=== PATIENT | male | born 1955 | race Caucasian/White ===

== ENCOUNTER 2021-04-21 05:01 | Inpatient (IN) | payer BC ==
[~2021-04-21] VITALS: Ht 188 cm; Wt 64.9 kg
[2021-04-21] VITALS (8 sets, daily range): BP systolic 96–144; BP diastolic 60–91
--- NOTE | ~2021-04-21 | EMS ---
[address] [address] EMS Patient Care Report Name: KJ ANTUNEZ Room #: 446-P ADM IN M.R.#: [id number] Admission: 04/21/21 Attend Phys: Shekhar Oconnell MD Discharge: Date of : 51 Report #: [id number] THIS REPORT FOR: //name// Report Transmitted: 04/25/2021 15:12 EMS Care Summary [place], [place]/[facility] Incident [id number] @ 04/21/2021 04:12 Incident Location [address] [place], [place] [id number] Patient KJ ANTUNEZ Male, 65 Years 1955 Patient Address HOMELESS Patient History None Reported, Patient Allergies No known allergies, Patient Medications None Reported, Chief Complaint COLD EXPOSURE Disposition Transported No Lights/[place] Dispatch Reason Hemorrhage/Laceration Transported To [facility] Narrative EMS DISPATCHED TO RESIDENCE ON A REPORT OF AN UNCONSCIOUS PERSON. UPON ARRIVAL ON SCENE EMS FIND PT SITTING WITH HIS FEET STUCK IN A WINDOW WELL. PT DENIED ANY PAIN, NO OBVIOUS INJURIES NOTED BY EMS. PT LIFTED OUT OF WINDOW WELL AND ONTO GROUND SURFACE. PT UNABLE TO AMBULATE WITHOUT ASSISTANCE. PT STATED TO EMS THAT HE HAD BEEN STUCK OUTSIDE IN THE COLD ENVIRONMENT FOR A PROLONGED PERIOD, [address] [address] EMS Patient Care Report Name: KJ ANTUNEZ Room #: 446-P ADM IN [facility].#: [id number] Admission: 04/21/21 Attend Phys: Shekhar Oconnell MD Discharge: Date of : 51 Report #: [id number] AND HAD LACK OF SENSATION IN LOWER EXTREMITIES. PT MOVED ONTO EMS STRETCHER AND INTO AMBULANCE WHERE PT VITAL SIGNS OBTAINED. PASSSIVE REWARMING MEASURE TAKEN BY EMS AND PT CONDITION CONTINUALLY MONITORED EN ROUTE TO [facility]. NO NOTICEABLE CHANGES IN PT CONDITION DURING TRANSPORT TO RECEIVING FACILITY. UPON ARRIVAL TO [facility] PT MOVED INTO FACILITY ON EMS STRETCHER WHERE PT WAS THEN TRANSFERRED ONTO ER HOSPITAL BED WITHOUT INCIDENT. PT REPORT GIVEN TO RECEIVING NURSING STAFF AND TRANSFER OF PT CARE COMPLETED. Initial Vitals @04:47P: 71,R: 16,BP: 176/67,Pain: 0/10,GCS: 15,SpO2: 95,Revised Trauma: 12, @04:42P: 79,R: 16,BP: 153/87,Pain: 0/10,GCS: 15,SpO2: 95,Revised Trauma: 12, Assessments @04:54MENTAL:Time Oriented,Place Oriented,Event Oriented,Person Oriented,SKIN:Pale,Cold,HEENT:Eyes: No Abnormalities,Neck/Airway: No Abnormalities,LUNG SOUNDS:ABDOMEN:PELVIS//GI:EXTREMITIES:Right Leg: Abnormal Sensation,Left Leg: Abnormal Sensation,Left Arm: No Abnormalities,Right Arm: No Abnormalities,PULSE:NEURO:Abnormal Gait, Impression Hypothermia Procedures @04:35 ALS Assessment Response: UnchangedSucceeded @04:39 Warming Response: UnchangedSucceeded Timeline 04:10,Call Received 04:10,Dispatch Notified 04:12,Dispatched 04:15,En Route 04:32,On Scene 04:34,At Patient 04:35,ALS Assessment,Response: UnchangedSucceeded, 04:39,Warming,Response: UnchangedSucceeded, 04:42,BP: 153/87 M,PULSE: 79,RR: 16 R,SPO2: 95 Ox,ETCO2: ,BG: ,PAIN: 0,GCS: 15, 04:46,Depart Scene 04:47,BP: 176/67 M,PULSE: 71,RR: 16 R,SPO2: 95 Ox,ETCO2: ,BG: ,PAIN: 0,GCS: 15, 04:57,At Destination 05:09,Call Closed Disclaimer v1.1 Copyright 2020 [employer] This EMS Care Summary contains data elements from the applicable legal record (which may be displayed differently). It is [place] [address] EMS Patient Care Report Name: KJ ANTUNEZ Room #: 446-P ADM IN .R.#: [id number] Admission: 04/21/21 Attend Phys: Shekhar Oconnell MD Discharge: Date of : 51 Report #: [id number] information for the following purposes: continuity of care, clinical quality, and state data reporting. The complete legal record is available to ED staff and administrators of the receiving hospital in [employer] Patient Tracker. All data is provided "as is."
[2021-04-21 06:19] LABS: ANION GAP 12 mmol/L (7-16); BUN 34 mg/dL (7-18); CALCIUM 8.4 mg/dL (8.5-10.1); CHLORIDE 107 mmol/L (98-107); CO2 26 mmol/L (21-32); CREATININE 1.1 mg/dL (0.7-1.3); GLUCOSE 217 mg/dL (74-106); POTASSIUM 5.6 mmol/L (3.5-5.1); SODIUM 145 mmol/L (136-145)
[2021-04-21 06:22] LABS: HEMOGLOBIN 8.9 gm/dL (14.0-18.0); MCH 25.5 pg (26.0-34.0); MCHC 27.2 g/dL (28.0-37.0); MCV 93.8 fL (80.0-100.0)
[2021-04-21 06:23] LABS: ALBUMIN 3.9 g/dL (3.4-5.0); MAGNESIUM 2.5 mg/dL (1.8-2.4); PHOSPHORUS 3.5 mg/dL (2.6-4.7); SGOT 41 U/L (15-37); SGPT 20 U/L (16-63); TOTAL BILIRUBIN 0.3 mg/dL (0.2-1.0); TOTAL PROTEIN 6.9 g/dL (6.4-8.2)
[2021-04-21 06:24] LABS: SALICYLATE < 2.8 mg/dL (2.8-20.0)
[2021-04-21 06:25] LABS: HEMATOCRIT 32.8 % (42.0-52.0); RBC 3.5 mil/uL (4.50-6.00); RDW 17.9 % (10.5-14.5)
[2021-04-21 06:37] LABS: WBC 333.8 thou/uL (4.0-11.0)
[2021-04-21 06:59] LABS: URINE BILIRUBIN NEGATIVE (Negative); URINE BLOOD 3+ (Negative); URINE CLARITY CLEAR; URINE COLOR YELLOW; URINE GLUCOSE-RANDOM* 1+ (Negative); URINE KETONES NEGATIVE (Negative); URINE LEUKOCYTES-REFLEX NEGATIVE (Negative); URINE NITRITE-REFLEX NEGATIVE (Negative); URINE PROTEIN (DIPSTICK) 1+ (Negative); URINE SPECIFIC GRAVITY >= 1.030 (1.005-1.035); URINE UROBILINOGEN 0.2 E.U./dl (0.2-1.0)
[2021-04-21 07:08] LABS: HYALINE CASTS 0-3 Few /LPF (None Seen); MUCUS >6 Heavy strn/LPF (None Seen); SQUAMOUS 4-10 Moderate /LPF (0-3)
[2021-04-21 07:10] LABS: URINE RBC 1-2 Rare /HPF (NONE SEEN); URINE WBC-REFLEX 0-5 Rare /HPF (0-5)
[2021-04-21 07:11] LABS: AMORPHOUS URATES Few /LPF (None Seen)
[2021-04-21 07:13] LABS: AMP/METHAMP Negative (Negative); BARBITURATES Negative (Negative); BENZODIAZEPINES Negative (Negative); COCAINE Negative (Negative); METHADONE Negative (Negative); OPIATES Negative (Negative); PCP Negative (Negative)
--- NOTE | 2021-04-21 10:14 | EKG ---
[address] [address] ELECTROCARDIOGRAM REPORT Name: KJ ANTUNEZ Room #: 201-P ADM IN M.R.#: [id number] Admission: 04/21/21 Attend Phys: Shekhar Oconnell MD Discharge: Date of : 51 Report #: [id number] [facility] ED Test Date: 2021-04-21 Test Time: 06:53:04 Pat Name: KJ ANTUNEZ Department: Room: 201 Gender: M Maintenance Chief: jr : 1955 Requested By: Gulshan Donald Order Number: [id number] MD: Sagar Kruger Measurements Intervals [place] Rate: 98 P: AL: QRS: 1 QRSD: 136 T: 32 QT: 427 QTc: 546 Interpretive Statements Atrial fibrillation Nonspecific ST segment abnormalities No previous ECG available for comparison Electronically Signed On 04-21-2021 10:14:27 [employer] by Sagar Kruger [email or web address] <ELECTRONICALLY SIGNED> By: Sagar Kruger MD 04/21/21 [id number] Sagar Kruger MD /EPI
[2021-04-21 11:14] LABS: HEMOGLOBIN 7.7 gm/dL (14.0-18.0); MCH 28.6 pg (26.0-34.0); MCV 92.4 fL (80.0-100.0); RDW 17.4 % (10.5-14.5)
[2021-04-21 11:21] LABS: WBC 223.1 thou/uL (4.0-11.0)
--- NOTE | 2021-04-21 13:24 | NUR ---
PT ARRIVED VIA GURNEY FROM ER. PT IS ALERT TO SELF AND WHERE HE IS AT. pT STATED THAT IT WAS 2021 BUT DID NOT KNOW ANY OTHER INFORMATION OR WHY HE WAS HERE. PT IS SR ON THE MONITOR AND RA. PT HAS 3 ABRASIONS ON HIS BACK, SEVERAL SCRATCHES AND BUG BITES ON HIS ARMS AND LEGS, AND ABRASION TO RIGHT SIDE OF FACE. PT WAS COVERED IN DIRT. COCCYX RED. RECEIVED CRITICAL WBC. NOTIFIED DR. MOROCHO. NO ORDERS AT THAT TIME. PER DR. MOROCHO, DRAW NEXT LACTIC ACID AT 1600. PT HAD NO COMPLAINTS OF PAIN OR DISCOMFORT. ORIENTED PT TO ROOM AND WENT THROUGH ADMISSION PACKET WITH PT. PT VERBALIZED UNDERSTANDING. WILL CONTINUE TO MONITOR.
[2021-04-21 15:20] LABS: ABSOLUTE NEUTROPHILS 13.4 thou/uL (1.4-8.2); BLASTS 1 %
[2021-04-21 15:22] LABS: ATYPICAL LYMPHS 12 %
[2021-04-21 15:23] LABS: PLATELET COUNT 82 thou/uL (150-400)
[2021-04-21 15:28] LABS: ANISOCYTOSIS 2+
--- NOTE | 2021-04-21 18:10 | NUR ---
SPOKE WITH DR. MOROCHO REGARDING LACTIC ACID 2.7. PER DR. MOROCHO, REPEAT LACTIC ACID WITH AM LABS. AT THIS TIME, NO NEED TO CONTINUE FLUIDS PER DR. MOROCHO DUE TO PT EATING AND DRINKING FLUIDS. WILL CONTINUE TO MONITOR.
--- NOTE | 2021-04-21 23:13 | NUR ---
ASSESSMENT COMPLTED. PT IS SO WEAK APPEARING. VERY PLEASANT. GOT UP X 2 TO UE THE BSC-REQUIRES CLOSE ASSIST SINCE HE IS VERY WEAK. HE HAD A BM. SHAYNA HAS DARK CLOUDY URINE.DRANK SOME SODAS. SR ON TELEMETRY. HE IS ROOM AIR-NO SIGNS OF DISTRESS.EDEMA TO BLE-SCDS IN PLACE. TEMP AND BP WNL.BEAR HUGGER ON LOW SETTINGS AND PT REPORTS FEELING COMFORTABLE.FALL PREC IN PLACE. WILL CONTINUE WITH POC TILL EOS.
[2021-04-22 03:33] LABS: HEMATOCRIT 22.4 % (42.0-52.0); HEMOGLOBIN 6.9 gm/dL (14.0-18.0)
[2021-04-22 03:35] LABS: MCH 28.6 pg (26.0-34.0); MCHC 30.7 g/dL (28.0-37.0); RBC 2.4 mil/uL (4.50-6.00); RDW 17.7 % (10.5-14.5)
[2021-04-22 03:38] LABS: WBC 171.4 thou/uL (4.0-11.0)
[2021-04-22 04:35] VITALS: BP 149/85
[2021-04-22 07:00] VITALS: BP 132/81
--- NOTE | 2021-04-22 10:42 | NUR ---
Nutrition: Pt admitted with hypothermia. Consult received for "severe sepsis." Pt found down and hypothermic at home. Has no heating for house. Pt feels better now. On warming blankets. Wts are highly variable: admit wt 125#, bed wt 143#. PLEASE REWEIGH FOR ACCURACY. Pt is eating 100% of meals. Per chart review, there is "no sepsis suspected." Labs: albumin 3.9, BG 141-217, K+ 5.6, BUN 3.4, creatinine 1.1. Bilateral feet edema. No other nutrition needs at this time. RD to follow up on accurate wt. Mild risk at this time.
[2021-04-22 11:00] VITALS: BP 124/75
--- NOTE | 2021-04-22 11:41 | NUR ---
PT CARE ASSUMED THIS AM, ALERT AND ORIENTED X4, FORGETFUL AND IMPULSIVE. BODY TEMP WITHIN NORMAL NOW. ON ROOM AIR, NO SIGNS OF DISTRESS. PT BILATERAL LOWER EXTREMITIES, SWOLLEN AND PAINFUL. DR. MOROCHO MADE AWARE. LEGS ELEVATED. CORRAL IN PLACE. DNEIES ANY NEEDS, WILL CONTINUE TO MONITOR. FALL PRECAUTIONS IN PLACE. WILL CONTINUE TOP MONITOR.
[2021-04-22 15:30] VITALS: BP 151/81
[2021-04-22 16:02] LABS: URIC ACID* 2.9 mg/dL (3.5-7.2)
[2021-04-22 19:32] VITALS: BP 137/79
[2021-04-22 20:00] VITALS: BP 137/79
[2021-04-23 03:18] LABS: HEMOGLOBIN 6.7 gm/dL (14.0-18.0)
[2021-04-23 03:23] LABS: HEMATOCRIT 21.4 % (42.0-52.0); MCH 29.2 pg (26.0-34.0); MCHC 31.3 g/dL (28.0-37.0); MCV 93.4 fL (80.0-100.0); RBC 2.29 mil/uL (4.50-6.00); RDW 17.4 % (10.5-14.5)
[2021-04-23 03:26] VITALS: BP 138/85
[2021-04-23 07:07] VITALS: BP 142/86
--- NOTE | 2021-04-23 07:38 | NUR ---
Assumed care at 1900 on 04/22/21. Pt A&O X 4. afebrile. no c/o pain. critical WBC of 158 called at 0427, CONVERSION MAN notitified. Assessments as charted.
--- NOTE | 2021-04-23 09:28 | NUR ---
PT TAKEN TO CT SCAN OF ABD THIS AM VIA WHEELCHAIR. PT ABLE TO STAND PIVOT AND SIT IN CHAIR AND TRANSPORT EASILY TO AND FROM CT. PT IN NEED OF BLOOS TRANSFUSION HOWEVER HE DENIES WANTING TO RECEIEVE TRANSFUSION AT THIS TIME. DR. MOROCHO AWARE AND HAS SPOKEN TO PATIENT REGARDING RISKS/BENEFITS, PT SIGNED REFUSAL CONSENT FORM. IS INFORMED THAT HE IS ABLE TO CHANGE IS MIND IF HE WISHES AND WILL CONTINUE TO REASSESS PATIENT WISHES. WILL CONTINUE TO FOLLOW POC.
[2021-04-23 11:27] VITALS: BP 133/81
[2021-04-23 15:38] VITALS: BP 131/77
[2021-04-23 19:26] VITALS: BP 126/73
[2021-04-24 04:38] LABS: HEMOGLOBIN 6.9 gm/dL (14.0-18.0)
[2021-04-24 04:44] LABS: HEMATOCRIT 21.8 % (42.0-52.0); MCH 29.4 pg (26.0-34.0); MCHC 31.7 g/dL (28.0-37.0); RBC 2.35 mil/uL (4.50-6.00); RDW 17.3 % (10.5-14.5)
[2021-04-24 04:52] VITALS: BP 131/79
[2021-04-24 05:22] LABS: WBC 172.3 thou/uL (4.0-11.0)
[2021-04-24 08:10] VITALS: BP 128/75
[2021-04-24 10:59] VITALS: BP 129/76
[2021-04-24 15:03] VITALS: BP 143/83
--- NOTE | 2021-04-24 16:54 | NUR ---
PATIENT TRANSFERED TO VIA WHEELCHAIR. NEEDED TO USE THE BEDSIDE COMMODE, URINATED. TREANSFERS WELL-STAND BY ASSIST. A/O X 3 SELF, SITUATION, PLACE WITH BOUTS OF FORGETFULNESS. ROOM AIR. NO CURRENT PAIN NOTED. VSS. HAS BILATERAL ARM SCABS AND 3 SCABS ON HIS BACK. LEFT AC IV-DRESSING DRY, CLEAN, AND INTACT.
[2021-04-24 20:16] VITALS: BP 134/74
--- NOTE | 2021-04-25 03:44 | NUR ---
PT LYING IN BED. VOIDING PER URINAL WITH ASSIST. DENIES PAIN. FREQUENT OBSERVATION.
[2021-04-25 08:00] VITALS: BP 133/66
[2021-04-25 08:49] LABS: OBSERVED RETIC COUNT 1.65 % (0.6-2.6)
--- NOTE | 2021-04-25 09:25 | NUR ---
ASSUMED CARE OF PT AT 0700 THIS MORNING. PT IS A/OX4, IMPULSIVE, FORGETFUL AND SOMETIMES CONFUSED. PT WILL GET UP AND GO TO RESTROOM WITHOUT PUSHING NURSE BUTTON. PT HAS SCABS AND SCARS ON BILAT ARMS, BACK AND STOMACH. ASSESSMENTS NOTED IN CHART AND OTHERWISE UNREMARKABLE. PT'S WBC IS CH AND HGB IS 6.8 ON 04/24. FALL PRECAUTIONS ARE IN PLACE. CALL LIGHT AND OTHER NEEDS ARE IN REACH. MEDS AND TX GIVEN NEEDED AND SCHEDULED. WILL CONTINUE TO MONITOR PT AND NOTE ANY CHANGES. DR. MOROCHO STATED HE MAY BE DISCHARGING PT TODAY.
--- NOTE | 2021-04-25 09:35 | NUR ---
65-year-old male with unknown medical history presents the ED with cold exposure. Patient was found by EMS in a window well attempting to get into the basement of the house. Patient reported cold extremities to EMS and was brought to the emergency department for evaluation. generally confused. He states that he does not remember being outside or being in a window well per bob. He denies any pain but notes that he feels cold. Patient's clothes are disheveled and is covered in dirt and bugs noted in the ED. 87 F temp and he was put on a bear hugger and warm fluids given Chart review. Edward visited with bob after he was back in bed from using the restroom. He is unsteady on his feet. He is a & o self, place, time with confusion and forgetfulness Lives at home alone. No longer drives, takes a taxi. cooks and cleans. Asked him if he can not afford his heating?, No i just have not paid it. No dme, and no hh or rehab in the past. Edward noted he was lying in bed without any covers, edward got him a blanket, thank you per bob. He reports he can afford the heat and any medication he may need. No contacts listed. Edward called his number listed on the face sheet and it is out of services. Edward had bedside nurse verified his name, , ss and who his pcp after edward called Dr camille varghese office and they do not have him down as a patient. Bob reported he has bcbs. No medicare noted. 1000- Discussed during los with the attending physician possible to dc today. Edward unable to set up home health without insurance. Edward passed on information to bedside nurse and the attending physician.
[2021-04-25 09:44] LABS: % SATURATION 14 % (20-39); IRON 29 ug/dL (65-175); TIBC 211 ug/dL (250-450)
[2021-04-25 10:09] LABS: FOLIC ACID 2.6 ng/mL (8.6-58.9)
[2021-04-25] MEDS ORDERED: IRON325 PO (12:48)
[2021-04-25] MEDS ORDERED: FOLIC ACID1 MG PO (12:48)
[2021-04-25 13:07] LABS: IgA 72 mg/dL (61-437); IgG 563 mg/dL (603-1613); IgM 57 mg/dL (20-172)
[2021-04-25 16:00] VITALS: BP 150/79
[2021-04-25 19:57] VITALS: BP 133/66
--- NOTE | 2021-04-26 02:24 | NUR ---
PT IS SLOWLY PROGRESSING TOWARD GOAL OF DISCHARGE. PT IS A&OX2-3 WITH FREQUENT CONFUSION AND FORGETFULNESS. PT IS IMPULSIVE, AND FREQUENTLY ATTEMPTS TO GET OUT OF BED WITHOUT ASSISTANCE DESPITE REEDUCATION BY NUMEROUS STAFF MEMBERS. PT IS STEADY FOR SHORT DISTANCES, BUT REMAINS AT RISK FOR FALLS. THOUGH HE IS IMPULSIVE, HE IS REDIRECTABLE. PER REPORT FROM OFFGOING NURSE, PT'S HGB IS 6.9 BUT PT REFUSED BLOOD TRANSFUSION. PT HAS ENJOYED SNACKING THROUGHOUT THE NIGHT. WILL CONTINUE TO OBSERVE FOR CHANGES.
[2021-04-26 05:19] VITALS: BP 158/73
[2021-04-26 08:52] LABS: HEP B SURFACE Ab(ANTI-HBS Non Reactive (()); HEPATITIS B SURFACE AG Negative (Negative); HEPATITIS C VIRUS AB <0.1 (0.0-0.9); KAPPA FREE LIGHT CHAINS 276.7 mg/L (3.3-19.4); KAPPA/LAMBDA RATIO 40.69 (0.26-1.65); LAMBDA FREE LIGHT CHAINS 6.8 mg/L (5.7-26.3)
--- NOTE | 2021-04-26 12:00 | NUR ---
Edward revisited with Rakesh this morning at bedside, he was up in recliner chair having breakfast. Checked to see if there were any neighbors that would let him in his house or get his nam. He doesn't feel like anyone can help him and is unsure where his keys are, just plan on going through the window per Rakesh. Education on safe dc, heat and having electricity to cook. Will need to vouch for his medication at dc and still checking to see if he has any active insurance. Passed on information to the attending physician during los.
[2021-04-26 13:08] LABS: M-SPIKE Not Observed g/dL (Not Observed)
[2021-04-26 15:45] VITALS: BP 153/78
--- NOTE | 2021-04-26 16:46 | NUR ---
RE-ASSUMED CARE OF PT AT 0700 THIS MORNING. PT HAD NO CHANGES SINCE HANDOFF LAST NIGHT. PT IS A/OX4 WITH FORGETFULNESS. ASSESSMENTS NOTED IN CHART AND OTHERWISE UNREMARKABLE. PT IS STILL IMPULSIVE AND WILL GET UP TO USE THE COMODE WITHOUT CALLING. PT HAS ASKED AND RECEIVED CRACKERS, BOXED MEALS X2 AND HAS EATEN REG MEALS. CALL LIGHT AND OTHER NEEDS ARE IN REACH AND FALL PRECAUTIONS ARE IN PLACE BUT IGNORED BY PT. MEDS AND TX GIVEN NEEDED AND SCHEDULED. PT HAS CASE MANGT WORKING TO FIND A PLACE FOR PT TO GO AND WILL POSSIBLEY BE DISCHARGED TOMORROW 04/27.
[2021-04-26 20:53] VITALS: BP 146/62
--- NOTE | 2021-04-27 04:18 | NUR ---
PT IS A/O X3 AND IS UP WITH SBA TO THE BSC. PT IS FORGETFUL AND IMPULSIVE. ROOM AIR. VSS AFEBRILE. DENIES C/O PAIN OR DISCOMFORT. FALL PRECAUTIONS IN PLACE, CALL LIGHT IS WITHIN REACH.
[2021-04-27 07:42] VITALS: BP 121/54
--- NOTE | 2021-04-27 10:34 | NUR ---
ASSUMED PT CARE THIS AM. AT THE START OF THE SHIFT, PT WAS IMPULSIVE AND HAS BEEN GETTING OUT OF BED TO THE BEDSIDE COMMODE MULTIPLE TIMES. PT IS HIGH FALL RISK. INFORMED HOSPITALIST AND SITTER PROVIDED PER DR ORDERED. PT HAS URGENCY AND FREQUENCY TO URINATED. PT TOLERATED DIET AND MEDICATION WELL. ONCOLOGY DR WAS AT THE BEDSIDE THIS AM AND INFORMED HOSPITALIST TO FOLLOW UP PT TO ONCOLOGY DR ONCE PT DC. WILL CONTINUE TO MONITOR PT. FOLLOW POC.
--- NOTE | 2021-04-27 16:38 | NUR ---
Credit Portfolio Advisor visited with the pt at bedside. He is a&ox3 but forgetful. He acknowledges he may not be able to care for himself and he does not have any support system in the community. LTC or RCF placement discussed. He is agreeable to this. He notes he lost house keys and can not recall where they are or why he did not pay his electric bill. He reports working for the [employer] for many years having intermediate income from this. He notes he also has health ins through his benefits with [employer]. Will ask UR/admitting to recheck with Espinoza Singleton. Referral faxed to [facility] liakiki Licea and she will be out to see him in the morning. Pt will need f/u care with ONC at dc and home does not appear to be the best option.
[2021-04-27 17:07] VITALS: BP 139/80
[2021-04-27 19:24] VITALS: BP 140/74
[2021-04-28 03:25] VITALS: BP 129/72
--- NOTE | 2021-04-28 03:49 | NUR ---
PT IS A/O X3 WITH FORGETFULNESS. PT IS IMPULSIVE AND WILL NOT USE CALL LIGHT FOR ASSISTANCE. SITTER IN PLACE FOR SAFETY. PT IS ON RA. VSS. FALL PRECAUTIONS IN PLACE, CALL LIGHT IS WITHIN REACH.
--- NOTE | 2021-04-28 07:45 | NUR ---
ASSUMED PT CARE THIS AM. DURING ASSESSMENT, PT WAS VERY IMPULSIVE AND GETTING OUT OF BED TO USE BEDSIDE COMMODE. NO SITTER. PT IS HIGH FALL RISK. HOUSE SUP IS AWARE AND NOTIFIED. AWAITING FOR ANOTHER MOVER HELPER. CALLED HOUSE SUP MULTIPLE TIMES.
[2021-04-28 08:11] VITALS: BP 140/81
[2021-04-28 17:04] VITALS: BP 146/82
[2021-04-28 18:41] VITALS: BP 129/81
[2021-04-29 04:18] VITALS: BP 144/75
--- NOTE | 2021-04-29 05:12 | NUR ---
ASSUMED CARE AT 1930 OF 04/28. PATIENT IS A&OX3, IMPULSIVE AND FORGETFUL. DENIES PAIN OR SHORTNESS OF BREATH. REMAINS A HIGH FALL RISK. SITTER AT BEDSIDE FOR SAFETY. 1 ASSIST TO TRANSFER TO BSC. FREQUNETLY GETTING UP TO PEE. PER SITTER, PATIENT IS ONLY SLEEPING AN HOUR OR SO AT A TIME, AND FREQUENTLY GETS UP TO USE BSC. CONTINUES TO HAVE LOOSE STOOLS. PRN LOPERAMIDE USED TO MANAGE LOOSE STOOLS. WILL CONTINUE TO MONITOR.
[2021-04-29 06:33] VITALS: BP 135/74
[2021-04-29 07:19] VITALS: BP 120/57
--- NOTE | 2021-04-29 11:33 | NUR ---
Change status to high nutrition risk.
--- NOTE | 2021-04-29 11:34 | NUR ---
Pt agreeable to snf stay and possible ltc placement at [facility]. Their liason was here with his yesterday and they did receive an updated facesheet with his insurance information. Bone Marrow biposy recommended by onc prior to dc to SNF. IR has him on the schedule for Sunday. Care team, the attending and the SNF liason Anuja updated. They will have a bed for him Sunday. Completed 124c faxed to Anuja and placed in the chart copy. All parties anticipated dc Sunday after his bx.
--- NOTE | 2021-04-29 13:48 | NUR ---
ASSUMED PT CARE THIS AM. PT HAS ONE ON ONE SITTER. DR CAO ORDERED [facility] IR THIS MORNING. IR CALLED AND INFORMED ME THAT WILL DO PROCEDURE ON SUNDAY DUE TO LACK OF STAFF TODAY. INFORMED DR CAO, HOSPITALIST AND CM. PT HAS BEEN REQUESTING SNACK SUCH CRACKER. PT TOLERATED DIET AND MEDICATION WELL. WILL CONTINUE TO MONITOR PT. FOLLOW POC.
[2021-04-29 14:44] LABS: HEMATOCRIT 26.1 % (42.0-52.0); RDW 17.7 % (10.5-14.5)
[2021-04-29 14:47] LABS: HEMOGLOBIN 7.5 gm/dL (14.0-18.0); MCH 27.7 pg (26.0-34.0); MCHC 28.6 g/dL (28.0-37.0); MCV 96.9 fL (80.0-100.0); PLATELET COUNT 174 thou/uL (150-400); RBC 2.69 mil/uL (4.50-6.00)
[2021-04-29 14:54] LABS: ALBUMIN 3.1 g/dL (3.4-5.0); CALCIUM 8.5 mg/dL (8.5-10.1); CREATININE 0.8 mg/dL (0.7-1.3); POTASSIUM 4.1 mmol/L (3.5-5.1); TOTAL BILIRUBIN 0.2 mg/dL (0.2-1.0)
[2021-04-29 15:02] LABS: WBC 128.8 thou/uL (4.0-11.0)
[2021-04-29 16:17] VITALS: BP 106/53
[2021-04-29 17:40] LABS: ABSOLUTE NEUTROPHILS 6.4 thou/uL (1.4-8.2); ATYPICAL LYMPHS 4 %; BLASTS 2 %; PLATELET ESTIMATE NORMAL
--- NOTE | 2021-04-30 05:06 | NUR ---
ASSUMED CARE AT 1900, PT REMAINS IN CONSTANT OBSERVATION, STAYED UP ALL NIGHT LAYING IN BED. COMPLIANT TO TX, CALL LIGHT, BELONGINGS, SNACKS, ICED WATER ON THE BED SIDE TABLE, TOILETED NEEDED, WILL CONTINUE TO MONITOR.
--- NOTE | 2021-04-30 11:23 | NUR ---
ASSUMED CARE AT 0700. PATIENT IS ALERT AND ORIENTEDX3. PATIENT BURTON'S, TEACHER SELECTION SPECIALIST ARE EQUAL. LUNGS ARE CLEAR AND DEMINISHED. ABD IS SOFT WITH BSX4. PATIENT IS IMPULSIVE. CM IS LOOKING FOR PLACEMENT. PATIENT HAS SITTER. VOIDING PER URINAL. ABD IS SOFT WITH BSX4. PATIENT HAD BM TODAY. PATIENT HAS RIGHT F.A. S.L. IV SITE WITHOUT REDNESS OR SWELLLING. FALL AND SAFETY PROTOCOLS IN PLACE. DENIES PAIN AT THIS TIME. CONTINUES TO PROGRESS SLOWLY TOWARDS D/C GOALS. WILL CONTINUE TO MONITER.
[2021-04-30 19:57] VITALS: BP 140/85
--- NOTE | 2021-05-01 04:59 | NUR ---
ASSUMED PT CARE AT 1900, PT REMAIN ON FREQUENT OBSERVATION, MULTIPLE ATTEMPTS TO AMBULATE WITHOUT UTILIZING THE CALL LIGHT, EDUCATION REINFORCED, USES BED SIDE COMMODE GUILLERMINA, BRIANNA WARE WELL, NO ADVERSE REACTION NOTED, WILL CONTINUE TO MONITOR.
[2021-05-01 07:57] VITALS: BP 102/57
--- NOTE | 2021-05-01 11:59 | NUR ---
ASSUMED CARE OF PT AT 0700 THIS MORNING. I HAD CARED FOR PT PREVIOUSLY AND PT HAS NO CHANGE SINCE LASR CARE. ASSESSMENTS NOTED IN CHART AND OTHERWISE UNREMARKABLE. PT IS IMPULSIVE AND WILL GET UP TO SIT ON CAMODE WITHOUT PUSHING CALL BUTTON. PT HAS BEEN EDUCATED MANY TIMES ON THIS NEED. FALL PRECAUTIONS IN PLACE. CALL LIGHT AND OTHER NEEDS ARE IN REACH. MEDS AND TX GIVEN NEEDED AND SCHEDULED. WILL MONITOR AND NOTE ANY CHANGES.
[2021-05-01 16:05] VITALS: BP 128/56
[2021-05-01 19:52] VITALS: BP 129/72
--- NOTE | 2021-05-02 04:34 | NUR ---
UPON SHIFT REPORT, PT WITHOUT NEED OR EXPRESSED CONCERN. UPON SHIFT ASSESMENT, PT AOX4 WITH INTERMITTENT FORGETFULNESS. PT DENIES PAIN AND SOB WHILE ON ROOM AIR. PT TOLERATING PO INTAKE OF FLUIDS AND REGULAR DIET WITHOUT ISSUE, MULTIPLE SNACKS PROVIDED, PT WITHOUT NAUSEA OR EMESIS. PT AMBULATING WITH STANDBY ASSIST TO BEDSIDE COMMODE, RESTING IN BED OTHERWISE. FREQUENT REPOSITIONING ENCOURAGED WHILE IN BED, PT NOTED TO SHIFT INDEPENDENTLY. SENSATION INTACT, CAPILLARY REFILL LESS THAN 3SEC, PERIPHERAL PULSES PALPABLE IN ALL EXTREMITIES. PT ENCOURAGED TO NOTIFY STAFF FOR ALL NEEDS, CALL LIGHT WITHIN REACH, BED ALARM ON, BED LOCKED IN LOWEST POSITION, ROOM REMAINS NEAR NURSES STATION, FREQUENT MONITORING WILL CONTINUE.
[2021-05-02 05:20] LABS: RBC 2.37 mil/uL (4.50-6.00)
[2021-05-02 05:22] LABS: HEMATOCRIT 23.3 % (42.0-52.0); HEMOGLOBIN 6.8 gm/dL (14.0-18.0); MCH 28.6 pg (26.0-34.0); MCHC 29.1 g/dL (28.0-37.0); MCV 98.1 fL (80.0-100.0); RDW 17.6 % (10.5-14.5)
[2021-05-02 05:32] LABS: INR 1.02; PROTIME 11.1 Seconds (10.5-12.1)
[2021-05-02 05:54] LABS: WBC 136.1 thou/uL (4.0-11.0)
[2021-05-02 08:00] VITALS: BP 137/68
--- NOTE | 2021-05-02 11:37 | NUR ---
Anticipated dc to [facility] today after his bx. Edward visited with Daniel at bedside and he cont. to agree with dcp. Buckner on chart copy already. He will be able to go by wheelchair van. Bedside nurse to call report to [phone]. Fax dc order to [phone]
--- NOTE | 2021-05-02 11:45 | NUR ---
Assumed pt care at 7am.Pt in bed resting and wanted food and water. Assessment completed.vss. Received call from cv that pt will be coming [facility] [place] [facility]. Pt notified and made npo. At 1145,pt left for cardio vascular lab per bed accompanied by rn. Will continue to monitor.
[2021-05-02 14:00] VITALS: BP 141/85
--- NOTE | 2021-05-02 16:34 | NUR ---
PT HAD BIOPSY DONE THIS DAY. CARE TEAM INDICATED THAT PT IS MEDICALLY STABLE TO DC SKILLED TO [facility]. CM REACHED OUT TO [facility] ADMISSIONS LIAISON AND INDICATED WE HAD ORDERS AND THAT CM HAD FAXED THEM TO HER. SHE RESPONDED THAT PT'S INSURANCE HAD DENIED SKILLED AND THAT PT WOULD BE PRIVATE PAY AND THAT THEY WOULD NEED $5,700 PRIOR TO ADMISSION. CM NOTIFIED CARE TEAM. CM FOLLOWING REGARDING POSSIBLE DC.
[2021-05-02 20:00] VITALS: BP 117/63
--- NOTE | 2021-05-03 04:03 | NUR ---
ALERT AND ORIENTED, DENIES PAIN, ASSESSMENTS CHARTED, UP TO THE B/S COMMODE BY ASSIST, BM THIS SHIFT PLAN FOR DISCHARGE TODAY, WILL CONTINUE TO MONITOR
[2021-05-03 08:56] VITALS: BP 121/71
--- NOTE | 2021-05-03 09:08 | PATH ---
[facility] [place] [address] PATHOLOGY RPT PROCEDURE Name: KJ ANTUNEZ Room #: 446-P ADM IN M.R.#: [id number] Admission: 04/21/21 Date of : 51 Discharge: Report #: [id number] Path Case #: [id number] [facility] Accession Number: [id number] . 01 Material submitted: . [facility] BLOOD FLOW . 01 Clinician provided ICD-10: D27.829 . 02 Diagnosis: Peripheral Blood: Ethridge restricted CD5+ B cells (78% of total nucleated cells) . Special studies report received from [facility], [address] [place] [address], [address], [place], [address], on case [id number], labeled with their number [id number], dated 04/26/2021. TOG 04/29/2021 1408 Local . 02 Comment: Special studies report received from [facility], [address] [place] [address], [address], [place], [address], on case [id number], labeled with their number [id number], dated 04/26/2021. . Flow Cytometry: Hematologic Neoplasia Assessment . Clinical History D27.829, J18.9 . Indication For Study Evaluation for leukemia and non-Hodgkin lymphoma . Specimen Peripheral Blood . Viability 80% (7AAD exclusion) . Interpretation Peripheral Blood: Ethridge restricted CD5+ B cells (78% of total nucleated cells) . Comments The most likely differential diagnosis for CD5 positive small B cell lymphoma includes mantle cell lymphoma and chronic lymphocytic leukemia/small lymphocytic lymphoma. FISH for IGH/CCND1 or immunohistochemistry staining for cyclin D1 and SOX11 is helpful for [address] [address] PATHOLOGY RPT PROCEDURE Name: KJ ANTUNEZ Room #: 446-P [facility] IN .R.#: [id number] Admission: 04/21/21 Date of : 51 Discharge: Report #: [id number] Path Case #: [id number] further classification. FISH is available and if needed, please contact our lab to add the test. . Populations Analyzed Myeloid Blasts: 0.0% No significant blast population detected Abnormal B-cells: 78% Scatter properties compatible with small to intermediate cell size, cells characterized as: CD45+, CD5+, CD10-, CD11b-, CD11c-/+, CD19+(dim), CD20+ (dim), CD22+ (dim), CD23+/- (weak), CD38-, FMC7-, HLA-DR+, sIg kappa+ (dim) Remaining 2% T-cells: no significant abnormalities of the Lymphocytes: markers tested CD4+ T-cells: 1.6% (including 0.0% CD57+ cells) CD8+ T-cells: 0.4% (including 0.0% CD57+ cells) CD4:CD8: 3.8 NK cells: less than 0.1% Neutrophils: 13% Slight left shift Monocytes: 1% No significant abnormalities of the markers tested Eosinophils: 0% No relative increase Basophils: <0.1% No relative increase CD45 Negative 6% No significant reactivity with the markers tested Events/Debris: (may represent unlysed red blood cells, erythroid precursors, platelets, debris, etc.) . Reagent(s) Used CD2, CD3, CD4, CD5, CD7, CD8, CD10, CD11b, CD11c, CD13, CD14, CD16, CD19, CD20, CD22, CD23, CD33, CD34, CD38, CD45, CD56, CD57, CD64, CD117, FMC-7, HLA-DR, kappa, lambda . Electronically Signed by Alexa Fu M.D., Ph.D. at 04:42PM PROVIDER ENGAGEMENT EXECUTIVE on 04/26/2021 at [employer]. Alexa Fu M.D., Ph.D. Hematopathologist . Intended Use Flow cytometry is optimally used to immunophenotypically characterize abnormal populations when they are detected. Negative flow cytometry results do not exclude lymphoma or neoplasia. Possible false negative flow cytometry results may occur in, but are not limited to, the following: neoplastic cells in Hodgkin lymphoma are not typically adequately represented by routine clinical flow cytometry; neoplastic cells may be lost or inadequately represented due to degeneration, sample processing, sampling artifact, or patchy involvement; plasma cells are typically underrepresented by flow cytometry; immature cells/blasts may be underrepresented due to hemodilution; myeloproliferative disorders and low grade myelodysplasia may not have immunophenotypic abnormalities or increased blasts. Correlation with all available clinical, laboratory, and morphologic data is always necessary to assess for the possibility of [address] [address] PATHOLOGY RPT PROCEDURE Name: KJ ANTUNEZ Room #: 446-P ADM IN M.R.#: [id number] Admission: 04/21/21 Date of : 51 Discharge: Report #: [id number] Path Case #: [id number] false negative flow cytometry results and to establish a diagnosis. Each marker in this analysis was used to assess for potential antigenic abnormalities or to evaluate detected abnormalities. . Any image or images that accompany this report are territory representative images only and should not be used to render a diagnosis. . Disclaimer(s) This test was developed and its performance characteristics determined by [employer]. It has not been cleared or approved by the Food and Drug Administration. . Performing [facility] is a business unit of [employer] a wholly-owned subsidiary of [employer]. . This test was performed at [employer]. at [address] [facility] [address], [place], [address] - Electronic Component Processor: Chad Garrido MD. . For inquiries, the physician may contact Lab: [phone] . A complete copy of the report is on file. . Professional services performed by [employer]. at [address], [place] [address]. Technical services performed by [employer]. at [address], [place] [address]. . (___:amj 04/29/2021) . . . 02 Diagnosis provided by: . Jd Miles DO, Pathologist NPI- [id number] . 03 Electronically signed: . Jd Miles DO, Pathologist NPI- [id number] . 01 Gross description: . This test was performed at [employer]. at [address], [address] Electronic Component Processor: Petra Gonzalez M.D., Ph.D [facility] 04/29/2021 [facility] Local . 02 [facility] [address] [place] [address] PATHOLOGY RPT PROCEDURE Name: KJ ANTUNEZ Room #: 446-P ADM IN M.R.#: [id number] Admission: 04/21/21 Date of : 51 Discharge: Report #: [id number] Path Case #: [id number] [facility] . [id number] Specimen Comment: A courtesy copy of this report has been sent to [phone] Specimen Comment: A duplicate report has been generated due to demographic updates. Performed at: 01 [facility] [address] [facility] [address], [place], [place] [id number] MD Lex Kyle MD Phone: [phone] Performed at: 02 [facility] [place] [address] [id number] MD Rosita Anderson MD Phone: [phone] Performed at: [address] [id number] MD Cordell Sevilla MD Phone: [phone]
--- NOTE | 2021-05-03 09:35 | NUR ---
[facility] liaison ryan going to come and speak with carey about option for private pay, since his insurance denied skilled rehab. Will cont following as needs arise.
[2021-05-03 15:49] VITALS: BP 116/64
[2021-05-03 15:51] VITALS: BP 132/75
--- NOTE | 2021-05-03 16:26 | NUR ---
Assumed pt care at 7am.Pt in and out of bed byself to c. Assessment completed.vss. Pt dangle at bs for all meals.Good appetite noted.Pt tolerated med and always calls out for extra food and drink at alltimes. Cm reported that pt admission to [facility] was denied. Pt required self pay prior to dc to rehab.Fall bundle in place. No verbal c/o. Wi;; continue to monitor.
[2021-05-03 19:28] VITALS: BP 129/63
--- NOTE | 2021-05-03 23:38 | NUR ---
ASSUMED CARE OF PT AT 1915. PT IS A&OX4. IS ON ROOM AIR. DENIES PAIN. IS STABLE. IS UP TO BSC MOD I TO BSC. HOURLY ROUNDING CONTINUED THIS SHIFT. PT DENIES CONCERNS. HOURLY ROUNDING CONTINUED. LABS & VITALS VIEWED. PT IS ABLE TO TURN SELF IN BED. DRSG TO LEFT GREAT TOE & 2ND TOE TOE. CALL LIGHT WITHIN REACH. WILL CONTINUE TO MONITOR.
[2021-05-04 03:55] VITALS: BP 105/49
[2021-05-04 07:44] VITALS: BP 125/66
[2021-05-04 15:00] VITALS: BP 125/62
[2021-05-04 19:24] VITALS: BP 133/62
[2021-05-05 04:12] VITALS: BP 105/45
--- NOTE | 2021-05-05 07:00 | NUR ---
ASSUMED CARE OF PT AT 1900. PT ASSESSED TO BE AOX4 65M PRESENTING WITH LEUKEMIA DESPITE REFUSAL TO BE TRANSFUSED. PT RESTED QUIETLY IN ROOM THROUGHOUT THE NIGHT WITH NO COMPLAINTS, VSS. PT STABLE ON ROOM AIR, ABLE TO PIVOT TO THE BEDSIDE COMMODE WITH NO ASSISTANCE, LARGE APPETITE WITH CONSTANT SNACKS, SLEEPS LIKE A ROCK AND SLEEP TALKS, NO VERBALIZED PAIN OR NAUSEA, AND AWAITING BIOPSY RESULTS AND FURTHER POC. WILL CONT TO MONITOR AND UPDATE DAY SHIFT RN.
[2021-05-05 09:37] VITALS: BP 116/63
[2021-05-05 16:32] VITALS: BP 125/75
--- NOTE | 2021-05-05 17:17 | NUR ---
assumed care of pt at 0700. no events to report. ambulating around room indepedently. asking frequently for snacks. otherwise voicing no concerns. placement pending.
[2021-05-05 20:01] VITALS: BP 85/32
[2021-05-05 20:35] VITALS: BP 129/70
--- NOTE | 2021-05-06 03:51 | NUR ---
ASSUMED CARE OF PT AT 1900. BEDSIDE REPORT RECIEVED. MONA ASSESSMENT COMPLETE. REINFORCED R HAND PIV DRESSING. PT DENIES ANY PAIN. C/O LOOSE STOOLS. PRN LOOPERMIDE GIVEN. PT CALLING OUT REPEATEDLY ASKING FOR SNACKS, SNACKS PROVIDED 5+ TIMES. HOURLY ROUNDING CONTINUING, ALL NEEDS MET, CALL LIGHT IN REACH
[2021-05-06 08:10] VITALS: BP 140/57
--- NOTE | 2021-05-06 11:49 | NUR ---
edward notified by ryan haque that are going to take him today skilled and wait for [facility] # to be active. Mi today. Edward notified attending physician. Dc orders and sum faxed to [facility], fax # [phone], bedside nurse to call report [phone].
--- NOTE | 2021-05-06 12:45 | NUR ---
A/O X 3, ROOM AIR, AD MARIA D, RIGHT FOREARM IV. CONT OF B/B, SCABS ON BILATERAL ARMS, D/C TO [facility] TODAY. NO PAIN. LIKES SNACKS.
[2021-05-06 14:39] LABS: HEMATOCRIT 24.6 % (42.0-52.0); MCHC 28.6 g/dL (28.0-37.0); MCV 97.9 fL (80.0-100.0); RBC 2.51 mil/uL (4.50-6.00); RDW 18.3 % (10.5-14.5)
[2021-05-06 14:42] LABS: WBC 109.5 thou/uL (4.0-11.0)
--- NOTE | 2021-05-06 15:16 | NUR ---
WBC 109.5 DOWN FROM 136.1.
[2021-05-06 16:56] VITALS: BP 133/60
--- NOTE | 2021-05-06 17:54 | NUR ---
Cm notified by liaison ryan with [facility] that they will not be able to accept today but will reach out on sunday for dc to [facility]. CM passed on information to 4s, attending physician and cm supervisor publications production.
[2021-05-06 21:13] VITALS: BP 145/95
--- NOTE | 2021-05-07 03:30 | NUR ---
ASSUMED CARE OF PT AT 1900. BEDSIDE REPORT RECIEVED. MONA ASSESSMENT COMPLETE. PT DENIES ANY PAIN OR DISCOMFORT. PRN IMMODIUM GIVEN FOR DIARRHEA. PIV CDI, PATENT AND SECURE. PT REQUESTING SNACKS, SNACKS BROUGHT IN SEVERAL TIMES. ALL NEEDS MET, HOURLY ROUNDING CONTINUING. CALL LIGHT IN REACH
[2021-05-07 08:42] VITALS: BP 118/60
--- NOTE | 2021-05-07 13:24 | NUR ---
SPOKE WITH NURSING REGARDING PT NOT DISCHARGING YESTERDAY. FACILITY MOTIFIED UNIT THAT THEIR TITLE CLOSER LEFT EARLY FOR THE DAY AND THAT THEY COULD NOT TAKE PT TIL SUNDAY DUE TO STILL WTG ON . SPOKE WITH LESTER AND SHE SAID SHE DID NOT KNOW WHY JEWEL WOULD HAVE TAKEN PT PRIOR TO . DC WILL LIKELY BE SUNDAY.
--- NOTE | 2021-05-07 15:40 | NUR ---
PT ALERT AND ORIENTED TIMES THREE, VSS. PT DENEIS PAIN/SOA. PT TOLERATES MEDS AND MEALS. PT UP WITH STEADY GAIT. PLANS FOR DISCHARGE SUNDAY.
[2021-05-07 16:56] VITALS: BP 113/56
[2021-05-07 20:35] VITALS: BP 117/72
--- NOTE | 2021-05-08 00:10 | NUR ---
ASSUMED CARE AT 1900 OF 05/07. PATIENT IS A&OX3, FORGETFUL AT TIMES. COOPERATIVE WITH CARES, NO C/O OF PAIN OR DISCOMFORT. DENIES SHORTNESS OF BREATH. RIGHT FOREARM PIV INTACT AND PATENT. CONTINUES TO FREQUENTLY REQUEST FOR SNACKS. SNACKS PROVIDED. SLEEPING DURING HOURLY ROUNDS. CALL LIGHT WITHIN REACH, WILL CONTINUE TO MONITOR.
[2021-05-08 08:01] VITALS: BP 112/53
--- NOTE | 2021-05-08 11:30 | NUR ---
RE-ASSUMED CARE OF PT AT 0700 THIS MORNING. PT IS A/OX4 WITH FORGETFULNESS AND SOME CONFUSION. NO CHANGES SINCE LAST CARE. ASSESSMENTS ARE CHARTED AND OTHERWISE UNREMARKABLE. PT IS UP AT MARIA D. NO FALL PRECAUTIONS NEEDED. CALL LIGHT AND OTHER NEEDS ARE IN REACH. MEDS AND TX GIVEN NEEDED AND SCHEDULED. WILL MONITOR AND NOTE ANY CHANGES.
[2021-05-08 15:10] VITALS: BP 123/51
[2021-05-08 20:12] VITALS: BP 122/64
[2021-05-09 07:39] VITALS: BP 108/52
--- NOTE | 2021-05-09 09:09 | NUR ---
RE-ASSUMED CARE OF PT AT 0700 THIS MORNING. PT HAD NO CHANGES SINCE REPORT LAST NIGHT. PT IS TO BE DISCHARGED TO GO TO [facility]. PT IS A/OX3 AND CONFUSED. ASSESSMENTS NOTED IN CHART. PT DIET WAS RE-ORDERED WITH DOUBLE PORTINS AND SUPPLEMENT ON ONE ORDER. DIETARY DID NOT ADD SUPPLEMENT TO HIS MEALS YESTERDAY. PT IS UP AT MARIA D. CALL LIGHT AND OTHER NEEDS ARE IN REACH. MEDS AND TX GIVEN NEEDED AND SCHEDULED. WILL MONITOR AND NOTE ANY CHANGES.
--- NOTE | 2021-05-09 09:55 | NUR ---
[facility] set up [employer] wheelchair transportation for 1100. [facility] faxed over form for carey to sign and fax back. Cm notified bedside, and attending physician of wi today at 11am .
[2021-05-09 13:38] VITALS: BP 151/66
--- NOTE | 2021-05-10 11:41 | NUR ---
voiced message from jesus in admission at [facility] # [phone]. Cm called her and left message asking for her to call back if she still needing assist.
--- NOTE | 2021-05-11 14:07 | PATH ---
[facility] [place] [address] PATHOLOGY RPT PROCEDURE Name: KJ BANERJEE Room #: 446-P [facility] IN M.R.#: [id number] Admission: 04/21/21 Date of : 51 Discharge: 05/09/21 Report #: [id number] Path Case #: [id number] [facility] Accession Number: [id number] . 01 Material submitted: . PART A: bone - BM BX PART B: bone - BM ASP CLOT PART C: bone - BM ASPIRATE SLIDES PART D: body - BM PERIPHERAL SMEAR PART E: bone - BM SENDOUT . 01 Clinical history: . 65-year-old man with marked leukocytosis/lymphocytosis and anemia. . 02 Diagnosis: Bone marrow aspirate, biopsy, cell clot and peripheral blood: - PERIPHERAL BLOOD WITH CHRONIC LYMPHOCYTIC LEUKEMIA/SMALL LYMPHOCYTIC LYMPHOMA. - HYPERCELLULAR BONE MARROW WITH TRILINEAGE HEMATOPOIESIS AND DIFFUSE INTERSTITIAL INVOLVEMENT BY CHRONIC LYMPHOCYTIC LEUKEMIA/SMALL LYMPHOCYTIC LYMPHOMA (APPROXIMATELY 80% INVOLVEMENT BY IMMUNOHISTOCHEMICAL STAINING). - See comment. (CLW:viola; 05/09/2021) S 05/09/2021 0805 Local . 02 Comment: Overall the bone marrow is hypercellular for the patient's age with diffuse interstitial involvement by chronic lymphocytic leukemia/small lymphocytic lymphoma. There is approximately 80% involvement by immunohistochemical staining. Correlation with clinical history, additional laboratory data and radiographic findings is recommended. (CLW:viola; 05/09/2021) . 02 Electronically signed: . Rosita Anderson MD, Pathologist NPI- [id number] . 01 Gross description: . A. The specimen is received in formalin, labeled "Kj Banerjee BM biopsy". Received is a single needle core of light leyva bone measuring 1.5 cm in length by 0.3 cm in diameter. The specimen is submitted entirely in cassette A1, following light decalcification. . B. The specimen is received in formalin, labeled "Kj Banerjee BM asp. (Clot)". Received is blood coagulum measuring 2.8 x 2.0 x 0.2 cm in aggregate dimensions. The specimen is filtered and entirely submitted in cassette B1. [address] [address] PATHOLOGY RPT PROCEDURE Name: KJ BANERJEE Room #: 446-P DIS IN M.R.#: [id number] Admission: 04/21/21 Date of : 51 Discharge: 05/09/21 Report #: [id number] Path Case #: [id number] ([facility]; 05/02/2021) NRI/NRI 05/02/2021 2110 Local . 02 Microscopic: . CBC Data (05/02/2021): WBC 125,700 /uL, RBC 2.39, hemoglobin 6.7 g/dL, hematocrit 24.1%, MCV 100.9 fL, MCH 28.2 pg, MCHC 27.9 g/dL, RDW 18.2%, and platelet count 201,000 /uL. White blood cell differential: segs 7%, lymphs 91.5%, monos 1.0%, eos 0.2%, and basos 0.3%. . Peripheral Blood Smear: Cytomorphological examination of the Bauer's stained peripheral blood smear confirms the provided data. Red blood cells show severe macrocytic anemia with mild anisocytosis. No significant poikilocytosis is identified. White blood cells are markedly increased in number. They are predominantly lymphocytes that are small, round and mature appearing with condensed chromatin and scant cytoplasm. No significant large lymphoid cell (prolymphocyte) component is identified. Smudge cells are seen. Rare granulocytes are predominantly segmented neutrophils. Monocytes are mature. Platelets are adequate in number and mainly normal in morphology with rare larger platelets noted. . Aspirate Smears: Cytomorphological examination of the Bauer's stained aspirate smears show spicules present. The overall cellularity is approaching 100%. The predominant nucleated cell seen is a small mature appearing lymphocyte. Background trilineage hematopoiesis is reduced. The myeloid to erythroid ratio, myeloid maturation, and erythroid maturation cannot be accurately evaluated. In a 300 cell differential, there are less than 1% blasts (no Key rods are seen), 5% more differentiated myeloids, 4% erythroid precursors, and 91% lymphocytes. Scattered megakaryocytes are both normal and abnormal in morphology. Again, there is a marked increase in small, mature appearing lymphocytes. No significant large lymphoid (prolymphocyte) component is identified. Iron stain of the aspirate smear shows 0 / 4+ iron positivity. No ringed sideroblasts are identified. . Core Biopsy and Cell Clot: The decalcified bone marrow core biopsy is adequate. The bone marrow is hypercellular with an overall cellularity of approximately 90%. There is an atypical lymphoid infiltrate. The atypical lymphocytes are predominantly small, round and mature appearing with condensed chromatin and scant cytoplasm. Background trilineage hematopoiesis is markedly reduced. Rare megakaryocytes are noted. Bony trabeculae and blood vessels are unremarkable. The cell clot has spicules present that are predominantly small, mature appearing lymphocytes. . Properly controlled special stains are performed. . Block A1: [address] [place] [address] PATHOLOGY RPT PROCEDURE Name: HARMONYKJ Room #: 446-P DIS IN M.R.#: [id number] Admission: 04/21/21 Date of : 51 Discharge: 05/09/21 Report #: [id number] Path Case #: [id number] Iron - 1 / 4+ iron positivity; Reticulin - mild diffuse reticulin fibrosis. . Block B1: Iron - trace stainable iron with spicules present. . To further quantify and characterize the neoplastic B-cell population and to identify cells in a tissue architectural context, properly controlled immunohistochemical stains are performed. . Block A1: CD20 - stains the neoplastic B-cells comprising 80% of the marrow cellularity; PAX5 - stains the neoplastic B-cells comprising 80% of the marrow cellularity; CD3 - stains occasional admixed T-cells; Cyclin D1 - lacks diffuse nuclear staining; Ki-67 - proliferative index of 5-10% in the neoplastic B-cells. . Block B1: CD20 - stains the neoplastic B-cells comprising 70-80% of the marrow cellularity; PAX5 - stains the neoplastic B-cells comprising 70-80% of the marrow cellularity; CD3 - highlights admixed T-cells; Cyclin D1 - lacks diffuse nuclear staining; Ki-67 - proliferative index of 5-10% in the neoplastic B-cells. . Flow Cytometry: Flow cytometric immunophenotypic analysis was performed at [facility] [place], [place]. The interpretation is "CD5 positive monotypic (clonal) B-cell population (86.5% of sample) with a B-cell chronic lymphocytic leukemia/small lymphocytic lymphoma (CLL/SLL) immunophenotype." There are 0.2% myeloid blasts. There are 86.5% abnormal B-cells that are small to intermediate in cell size and characterized as CD45 pos, CD5 pos, CD10 neg, CD11b neg, CD11c neg/pos, CD19 pos, CD20 pos (dim), CD22 pos (dim), CD23 pos, CD38 pos, FMC7 neg, HLA-DR pos, and surface kappa pos (dim). There are 6.2% remaining lymphocytes. Of the remaining lymphocytes, there are 0.2% polyclonal B-cells. T-cells have a CD4/CD8 ratio of 5.2 and no aberrant T-cell antigen expression. Please see separate flow cytometry report from [facility] [place], [place] ([id number]). . Cytogenetics: Cytogenetic chromosomal analysis was attempted at [facility] [place] [place]. Insufficient sample was available to perform the analysis. Please see separate cytogenetics report from [facility] [place], [place] ([id number]). (CLW:viola; 05/09/2021) . [place] [address] PATHOLOGY RPT PROCEDURE Name: KJ BANERJEE Room #: 446-P DIS IN M.R.#: [id number] Admission: 04/21/21 Date of : 51 Discharge: 05/09/21 Report #: [id number] Path Case #: [id number] . 02 Pathologist provided ICD-10: C95.90 . 02 CPT . 929675, 176377, 168297, 584360, 295233, 228574, 574125, 433772, 542823, [id number], B03048, 325506, 576338, 972662, 713243, 803036, 685548 Specimen Comment: A courtesy copy of this report has been sent to [phone] Specimen Comment: [id number] Specimen Comment: Report sent to / DR ONEILL Specimen Comment: A duplicate report has been generated due to demographic updates. Performed at: 01 [facility] [address] [id number] MD Lex Kyle MD Phone: [phone] Performed at: 02 [facility] [address] [id number] MD Rosita Anderson MD Phone: [phone]
== END 2021-05-09 12:00 | DRG 923 ==
LOC: ER 05:01 → 4S 07:55 → EROBS 07:55 → 2N 08:15 → 4S 04-24 16:28
PROVIDERS: Emergency Medicine; Hospitalist; Internal Medicine; Physician Assistant; Radiology Diagnostic Radiology; ADMIT Hospitalist; ATTEND Hospitalist
PROC: 07DR3ZX Extraction of Iliac Bone Marrow, Percutaneous Approach, Diagnostic (ICD-10-PCS; principal; 2021-05-02)
DX: T68.XXXA Hypothermia, initial encounter (principal); I10 Essential (primary) hypertension; Z20.822 Contact with and (suspected) exposure to COVID-19; E78.5 Hyperlipidemia, unspecified; Z79.899 Other long term (current) drug therapy; E87.5 Hyperkalemia; R19.7 Diarrhea, unspecified; D64.9 Anemia, unspecified; D69.6 Thrombocytopenia, unspecified
CPT/HCPCS: 10081; 10102

== ENCOUNTER → 2021-07-20 | Outpatient (CLI) | payer BC ==
[~2021-07-20] MED LIST: FOLIC ACID1 MG PO; IRON325 PO
[2021-07-20 14:30] LABS: HEMOGLOBIN 8.8 gm/dL (14.0-18.0)
[2021-07-20 14:33] LABS: HEMATOCRIT 28.3 % (42.0-52.0); MCH 27.9 pg (26.0-34.0); MCHC 31.2 g/dL (28.0-37.0); MCV 89.2 fL (80.0-100.0); PLATELET COUNT 99 thou/uL (150-400); RBC 3.17 mil/uL (4.50-6.00); RDW 16.4 % (10.5-14.5)
[2021-07-20 14:39] LABS: % SATURATION 11 % (20-39); IRON 37 ug/dL (65-175); TIBC 330 ug/dL (250-450)
[2021-07-20 14:42] LABS: ALBUMIN 3.8 g/dL (3.4-5.0); BUN 28 mg/dL (7-18); CALCIUM 8.5 mg/dL (8.5-10.1); CHLORIDE 105 mmol/L (98-107); CREATININE 0.9 mg/dL (0.7-1.3); GLUCOSE 112 mg/dL (74-106); SGOT 13 U/L (15-37); SGPT 23 U/L (30-65); SODIUM 143 mmol/L (136-145); TOTAL BILIRUBIN < 0.1 mg/dL (0.2-1.0); TOTAL PROTEIN 6.6 g/dL (6.4-8.2)
[2021-07-20 14:50] LABS: ANION GAP 11 mmol/L (7-16); CO2 27 mmol/L (21-32)
[2021-07-20 15:06] LABS: FERRITIN 33 ng/mL (26-388)
[2021-07-20 15:44] LABS: ABSOLUTE NEUTROPHILS 4.7 thou/uL (1.4-8.2)
[2021-07-20 15:45] LABS: ATYPICAL LYMPHS 5 %
== END ==
LOC: LAB 13:55
PROVIDERS: ATTEND Internal Medicine
DX: C91.10 Chronic lymphocytic leukemia of B-cell type not having achieved remission (principal); E53.8 Deficiency of other specified B group vitamins; R59.1 Generalized enlarged lymph nodes; R16.1 Splenomegaly, not elsewhere classified; D47.2 Monoclonal gammopathy; D50.8 Other iron deficiency anemias; D52.8 Other folate deficiency anemias; C83.08 Small cell B-cell lymphoma, lymph nodes of multiple sites; C83.09 Small cell B-cell lymphoma, extranodal and solid organ sites